=== PATIENT | female | born 1980 | race Caucasian/White ===

== ENCOUNTER 2018-03-21 10:00 | Inpatient (IN) | payer BC ==
[2018-03-21] MEDS ORDERED: Butorphanol 1 MG/ML SDV IVPUSH PRN (10:14)
[2018-03-21] MEDS ORDERED: Lidocaine 1% 50 ML MDV INJECT PRN (10:14)
[2018-03-21] MEDS ORDERED: Carboprost Tromethamine 250 MCG/1 ML Amp IM PRN (10:14)
[2018-03-21] MEDS ORDERED: Terbutaline 1 MG/ML SDV SUBCUT PRN (10:14)
[2018-03-21] MEDS ORDERED: Tranexamic Acid 1,000 MG in Sodium Chloride 0.9% 100 ML IV PRN (10:14)
[2018-03-21] MEDS ORDERED: Methylergonovine 0.2 MG/1 ML Amp IM PRN (10:14)
[2018-03-21] MEDS ORDERED: Sodium Chloride 0.9% 2.5 ML Syringe FLUSH PRN (10:14)
[2018-03-21] MEDS ORDERED: Water For Irrigation,Sterile 1,000 ML Container IRR PRN (10:14)
[2018-03-21] MEDS ORDERED: Sodium Chloride 0.9% 10 ML Syringe FLUSH PRN (10:14)
[2018-03-21] MEDS ORDERED: Misoprostol 200 MCG Tab PO PRN (10:14)
[2018-03-21] MEDS ORDERED: Nalbuphine 10 MG/1 ML Vial IVPUSH PRN (10:14)
[2018-03-21] MEDS ORDERED: Oxytocin/0.9 % Sodium Chloride 30 UNIT/500 ML BAG IV SCH ×2 (10:15)
[2018-03-21] MEDS ORDERED: Ampicillin 2 GM in Sodium Chloride 0.9% 100 ML IV ONE (10:30)
[2018-03-21] MEDS: Lactated Ringers 1,000 ML IV SCH ×2 (11:05→16:12)
[2018-03-21] MEDS ORDERED: Ampicillin 1 GM in Sodium Chloride 0.9% 50 ML IV SCH (15:00)
--- NOTE | 2018-03-21 16:20 | PCM.PREANE ---
Preanesthetic Assessment - Anesthesia/Transfusion/Family Hx Family History of Anesthesia Reaction: No - Review of Systems General: No Symptoms Pulmonary: No Symptoms Cardiovascular: No Symptoms Gastrointestinal: No Symptoms Neurological: No Symptoms Other: Reports: None (Denies any personal or family history of bleeding or clotting problems) - Physical Assessment Height: 1.63 m Weight: 81.193 kg ASA Class: 2 Mental Status: Alert & Oriented x3 Airway Class: Mallampati = 2 Dentition: Reports: Normal Dentition ROM/Head Extension: Full - Lab Values: Laboratory Last Values WBC 10.07 K/uL (4.0-11.0) 03/21/18 10:56 RBC 4.03 M/uL (4.30-5.90) L 03/21/18 10:56 Hgb 11.0 g/dL (12.0-16.0) L 03/21/18 10:56 Hct 33.9 % (36.0-46.0) L 03/21/18 10:56 MCV 84.1 fL (80.0-98.0) 03/21/18 10:56 MCH 27.3 pg (27.0-32.0) 03/21/18 10:56 MCHC 32.4 g/dL (31.0-37.0) 03/21/18 10:56 RDW Std Deviation 45.5 fl (28.0-62.0) 03/21/18 10:56 RDW Coeff of Angely 15 % (11.0-15.0) 03/21/18 10:56 Plt Count 209 K/uL (150-400) 03/21/18 10:56 MPV 11.70 fL (7.40-12.00) 03/21/18 10:56 Nucleated RBC % 0.0 /100WBC 03/21/18 10:56 Nucleated RBCs # 0 K/uL 03/21/18 10:56 Blood Type O NEGATIVE 03/21/18 10:56 Antibody Screen NEGATIVE 03/21/18 10:56 - Allergies Allergies/Adverse Reactions: Allergies Allergy/AdvReac Type Severity Reaction Status Date / Time No Known Allergies Allergy Verified 03/21/18 10:12 - Acknowledgements Anesthesia Type Planned: Epidural Pt an Appropriate Candidate for the Planned Anesthesia: Yes Alternatives and Risks of Anesthesia Discussed w Pt/Guardian: Yes Pt/Guardian Understands and Agrees with Anesthesia Plan: Yes Additional Comments: Patient consents and agrees to risks as outlined on blue anesthesia consent form PreAnesthesia Questionnaire - Past Health History Medical/Surgical History: Denies 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: - Past Surgical History HEENT Surgical History: Reports: 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) Other HEENT Surgeries/Procedures: wisdom teeth Female Surgical History: Reports: Breast Implant, D&C, LEEP Musculoskeletal Surgical History: Reports: 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) Other Musculoskeletal Surgeries/Procedures:: Right elbow surgery - HOME MEDS Home Medications: Home Meds Acetaminophen [Tylenol] 325 mg PO Q4H PRN 03/21/18 [History] Vit W-Ca,Fe,FA(<1 mg) [ Vitamins] 1 each PO DAILY 03/21/18 [ History] - CURRENT (IN HOUSE) MEDS Current Meds: Current Medications Butorphanol Tartrate (Stadol) 1 mg IVPUSH Q1H PRN PRN Reason: Pain Carboprost Tromethamine (Hemabate Ds) 250 mcg IM ASDIRECTED PRN PRN Reason: Post Hemorrhage Ampicillin Sodium 1 gm/ Sodium (Chloride) 50 mls @ 100 mls/hr IV Q4H [facility]K Last Admin: 03/21/18 15:00 Dose: 100 mls/hr Lactated Ringer's (Ringers, Lactated) 1,000 mls @ 150 mls/hr IV ASDIRECTED AMRIK Last Admin: 03/21/18 16:12 Dose: 150 mls/hr Oxytocin/Sodium Chloride (Oxytocin 30 Unit/500 Ml-Ns) 30 unit in 500 mls @ 2 mls/hr IV TITRATE [facility]RIK; Protocol Last Titration: 03/21/18 15:09 Dose: 10 munits/min, 10 mls/hr Oxytocin/Sodium Chloride (Oxytocin 30 Unit/500 Ml-Ns) 30 unit in 500 mls @ 999 mls/hr IV TITRATE [facility] Tranexamic Acid 1,000 mg/ (Sodium Chloride) 110 mls @ 660 mls/hr IV ONETIME PRN PRN Reason: Bleeding Lidocaine HCl (Xylocaine 1%) 50 ml INJECT ONETIME PRN PRN Reason: Laceration repair Methylergonovine Maleate (Methergine) 0.2 mg IM ASDIRECTED PRN PRN Reason: Post Hemorrhage Misoprostol (Cytotec) 200 mcg PO ONETIME PRN PRN Reason: Post Hemorrhage Nalbuphine HCl (Nubain) 10 mg IVPUSH Q1H PRN PRN Reason: Pain (severe 7-10) Sodium Chloride (Saline Flush) 10 ml FLUSH ASDIRECTED PRN PRN Reason: Keep Vein Open Sodium Chloride (Saline Flush) 2.5 ml FLUSH ASDIRECTED PRN PRN Reason: Keep Vein Open Sterile Water (Sterile Water For Irrigation) 1,000 ml IRR ASDIRECTED PRN PRN Reason: delivery Terbutaline Sulfate (Brethine) 0.25 mg SUBCUT ASDIRECTED PRN PRN Reason: Tacysystole Discontinued Medications Ampicillin Sodium 2 gm/ Sodium (Chloride) 100 mls @ 200 mls/hr IV ONETIME ONE Stop: 03/21/18 10:59 Last Admin: 03/21/18 11:05 Dose: 200 mls/hr Fentanyl/Bupivacaine HCl (Iedylrav-Bkuhy-Yw 2 Mcg/Ml-0.125%) Confirm Administered Dose 100 mls @ as directed BRENDA .STK-MED ONE Stop: 03/21/18 15:37
[2018-03-21] MEDS ORDERED: Bupivacaine 0.5% 10 ML SDV ONE (17:17)
[2018-03-21] MEDS ORDERED: fentaNYL 100 MCG/2 ML SDV ONE (17:17)
[2018-03-21] MEDS ORDERED: Ondansetron 4 MG/2 ML SDV IVPUSH PRN (19:00)
[2018-03-21] MEDS ORDERED: Ibuprofen 400 MG Tab PO PRN (19:00)
[2018-03-21] MEDS ORDERED: Lanolin 100% Cream 7 GM Tube TOP PRN (19:00)
[2018-03-21] MEDS ORDERED: Bisacodyl 10 MG Supp RECTAL PRN (19:00)
[2018-03-21] MEDS ORDERED: Benzocaine/Menthol 20%-0.5% Spray 78 GM Cannister TOP PRN (19:00)
[2018-03-21] MEDS ORDERED: Witch Hazel Medicated Pads 40/Jar TOP PRN (19:00)
[2018-03-21] MEDS ORDERED: Docusate Sodium 100 MG Cap PO PRN (19:00)
[2018-03-21] MEDS ORDERED: oxyCODONE 5 MG Tab PO PRN (19:00)
[2018-03-21] MEDS ORDERED: Acetaminophen 500 MG Tab PO PRN ×2 (19:00)
[2018-03-21] MEDS: Ibuprofen 800 MG Tab PO PRN (19:26)
--- NOTE | 2018-03-22 02:21 | OR ---
SURGEON: Stella Elizabeth M.D. DATE OF PROCEDURE: 03/21/2018 PREOPERATIVE DIAGNOSES: 1. 40 and 1 week intrauterine . 2. Induction of labor. 3. Group B beta strep positive. POSTOPERATIVE DIAGNOSES: 1. 40 and 1 week intrauterine . 2. Induction of labor. 3. Group B beta strep positive. PROCEDURE: Spontaneous vaginal delivery, first-degree midline laceration repaired. ANESTHESIA: Epidural. ESTIMATED BLOOD LOSS: 300 mL. FINDINGS: Viable female. scores 9 at one minute, 9 at five minutes. Weight of 3560 g. Spontaneous delivery, intact placenta, 3-vessel cord. DISPOSITION: to nursery, mom in LDRP, stable. PROCEDURE IN DETAIL: Ananya is a 37-year-old, G5, P1-1-2-2 at 40 and 1 weeks' gestational age, who presents on the late morning of 03/21/2018 for scheduled induction of labor due to past due . She was admitted, routine labs were drawn. On initial examination, she was found to be 3 cm. heart tones were in the 130s with variability. She is group B beta strep positive. Therefore, initiated on ampicillin prophylaxis. The patient responded nicely to Pitocin, became increasingly uncomfortable throughout the afternoon hours. Shortly after 3:00 p.m., was able to undergo amniotomy after receiving 2 doses of ampicillin. The patient became increasingly more uncomfortable thereafter underwent regional anesthesia in the form of epidural and progressed rapidly to complete over the next 2 hours. I was called for delivery when she was +3 station. Upon my arrival, the patient was placed in modified dorsal lithotomy position, was prepped and draped in the usual aseptic manner. Began pushing efforts and was able to push readily to a +5 station, delivered infant's head followed by anterior shoulder, posterior shoulder, and remaining body without difficulty. The 's oropharynx and nares were bulb suctioned. Cord was clamped x2 and cut. Infant was handed off to her mother with attending nursing staff at her side. Cord arterial, cord venous, cord blood sampling were obtained. Light suprapubic pressure was applied while the placenta was delivered spontaneously intact. Vigorous fundal uterine massage was then applied while 30 units of Pitocin was delivered in 500 mL IV fluid. Upon inspection of cervix, vaginal sidewalls, and perineum, these were found to be intact other than a first-degree midline laceration that was repaired using 3-0 Vicryl in the usual fashion. Hemostasis remained evident. Sponge count and needle count were correct. The patient remained in LDRP, infant to nursery. TAYLER / MARILY /[id number]
[2018-03-22] MEDS: Ibuprofen 800 MG Tab PO PRN ×2 (06:54→16:08)
--- NOTE | 2018-03-22 10:11 | PCM.PNPP ---
- General Info Date of Service: 03/22/18 Functional Status: Reports: Pain Controlled, Tolerating Diet, Ambulating, Urinating - Review of Systems General: Reports: Fatigue. Denies: Fever, Weakness Pulmonary: Denies: Shortness of Breath Cardiovascular: Denies: Chest Pain, Palpitations, Lightheadedness Gastrointestinal: Denies: Abdominal Pain, Nausea, Vomiting Genitourinary: Denies: Flank Pain Neurological: Reports: No Symptoms Psychiatric: Reports: No Symptoms - General Info Date of Service: 03/22/18 - Patient Data Vital Signs - Most Recent: Last Vital Signs Temp 36.4 C 03/22/18 08:00 Pulse 79 03/22/18 08:00 Resp 16 03/22/18 08:00 BP 135/89 03/22/18 08:00 Pulse Ox 97 03/22/18 08:00 Weight - Most Recent: 81.193 kg Lab Results - Last 24 Hours: Laboratory Results - last 24 hr 03/21/18 03/21/18 03/21/18 Range/Units 10:56 10:56 18:38 WBC 10.07 (4.0-11.0) K/uL RBC 4.03 L (4.30-5.90) M/uL Hgb 11.0 L (12.0-16.0) g/dL Hct 33.9 L (36.0-46.0) % MCV 84.1 (80.0-98.0) fL MCH 27.3 (27.0-32.0) pg MCHC 32.4 (31.0-37.0) g/dL RDW Std Deviation 45.5 (28.0-62.0) fl RDW Coeff of Angely 15 (11.0-15.0) % Plt Count 209 (150-400) K/uL MPV 11.70 (7.40-12.00) fL Nucleated RBC % 0.0 /100WBC Nucleated RBCs # 0 K/uL Cord ABG pH 7.232 (7.18-7.38) Cord ABG Base Excess -6 (-10--2) Cord VBG pH 7.306 (7.25-7.45) Cord VBG Base Excess -5 (-10--2) Blood Type O NEGATIVE Antibody Screen NEGATIVE 03/22/18 Range/Units 05:30 WBC (4.0-11.0) K/uL RBC (4.30-5.90) M/uL Hgb 10.3 L (12.0-16.0) g/dL Hct 31.7 L (36.0-46.0) % MCV (80.0-98.0) fL MCH (27.0-32.0) pg MCHC (31.0-37.0) g/dL RDW Std Deviation (28.0-62.0) fl RDW Coeff of Angely (11.0-15.0) % Plt Count (150-400) K/uL MPV (7.40-12.00) fL Nucleated RBC % /100WBC Nucleated RBCs # K/uL Cord ABG pH (7.18-7.38) Cord ABG Base Excess (-10--2) Cord VBG pH (7.25-7.45) Cord VBG Base Excess (-10--2) Blood Type Antibody Screen Med Orders - Current: Current Medications Acetaminophen (Tylenol Extra Strength) 500 mg PO Q4H PRN PRN Reason: Pain Acetaminophen (Tylenol Extra Strength) 1,000 mg PO Q4H PRN PRN Reason: Pain Last Admin: 03/22/18 01:11 Dose: 1,000 mg Benzocaine/Menthol (Dermoplast Pain Relief 20%-0.5% [place]) 78 gm TOP ASDIRECTED PRN PRN Reason: Perineal Comfort Measure Last Admin: 03/21/18 19:57 Dose: 78 gm Bisacodyl (Dulcolax) 10 mg RECTAL ONETIME PRN PRN Reason: Constipation Carboprost Tromethamine (Hemabate Ds) 250 mcg IM ASDIRECTED PRN PRN Reason: Post Hemorrhage Docusate Sodium (Colace) 100 mg PO BID PRN PRN Reason: Constipation Last Admin: 03/21/18 19:28 Dose: 100 mg Emollient Ointment (Lansinoh Hpa) 0 gm TOP ASDIRECTED PRN PRN Reason: Sore Nipples Last Admin: 03/21/18 19:30 Dose: 7 gm Lactated Ringer's (Ringers, Lactated) 1,000 mls @ 150 mls/hr IV ASDIRECTED AMRIK Last Admin: 03/21/18 16:12 Dose: 150 mls/hr Oxytocin/Sodium Chloride (Oxytocin 30 Unit/500 Ml-Ns) 30 unit in 500 mls @ 2 mls/hr IV TITRATE AMRIK; Protocol Last Titration: 03/21/18 15:09 Dose: 10 munits/min, 10 mls/hr Oxytocin/Sodium Chloride (Oxytocin 30 Unit/500 Ml-Ns) 30 unit in 500 mls @ 999 mls/hr IV TITRATE AMRIK Last Admin: 03/21/18 18:38 Dose: 500 mls/hr Tranexamic Acid 1,000 mg/ (Sodium Chloride) 110 mls @ 660 mls/hr IV ONETIME PRN PRN Reason: Bleeding Ibuprofen (Motrin) 400 mg PO Q4H PRN PRN Reason: Pain Ibuprofen (Motrin) 800 mg PO Q6H PRN PRN Reason: Pain Last Admin: 03/22/18 06:54 Dose: 800 mg Methylergonovine Maleate (Methergine) 0.2 mg IM ASDIRECTED PRN PRN Reason: Post Hemorrhage Misoprostol (Cytotec) 200 mcg PO ONETIME PRN PRN Reason: Post Hemorrhage Nalbuphine HCl (Nubain) 10 mg IVPUSH Q1H PRN PRN Reason: Pain (severe 7-10) Ondansetron HCl (Zofran) 4 mg IVPUSH Q6H PRN PRN Reason: Nausea/Vomiting Oxycodone HCl (Oxycodone) 5 mg PO Q2H PRN PRN Reason: Pain Sodium Chloride (Saline Flush) 10 ml FLUSH ASDIRECTED PRN PRN Reason: Keep Vein Open Sodium Chloride (Saline Flush) 2.5 ml FLUSH ASDIRECTED PRN PRN Reason: Keep Vein Open Sterile Water (Sterile Water For Irrigation) 1,000 ml IRR ASDIRECTED PRN PRN Reason: delivery Last Admin: 03/21/18 19:52 Dose: 1,000 ml Witch Kathleen (Tucks) 1 pad TOP ASDIRECTED PRN PRN Reason: comfort care Last Admin: 03/21/18 19:57 Dose: 1 pad Discontinued Medications Bupivacaine HCl (Sensorcaine-Mpf 0.5%) Confirm Administered Dose 10 ml .ROUTE .STK-MED ONE Stop: 03/21/18 17:18 Last Admin: 03/22/18 07:32 Dose: Not Given Butorphanol Tartrate (Stadol) 1 mg IVPUSH Q1H PRN PRN Reason: Pain Fentanyl (Sublimaze) Confirm Administered Dose 100 mcg .ROUTE .STK-MED ONE Stop: 03/21/18 17:18 Last Admin: 03/22/18 07:32 Dose: Not Given Ampicillin Sodium 2 gm/ Sodium (Chloride) 100 mls @ 200 mls/hr IV ONETIME ONE Stop: 03/21/18 10:59 Last Admin: 03/21/18 11:05 Dose: 200 mls/hr Ampicillin Sodium 1 gm/ Sodium (Chloride) 50 mls @ 100 mls/hr IV Q4H AMRIK Last Admin: 03/21/18 15:00 Dose: 100 mls/hr Fentanyl/Bupivacaine HCl (Ljvewwhc-Zsiap-Lq 2 Mcg/Ml-0.125%) Confirm Administered Dose 100 mls @ as directed EP .STK-MED ONE Stop: 03/21/18 15:37 Last Admin: 03/22/18 07:32 Dose: Not Given Lidocaine HCl (Xylocaine 1%) 50 ml INJECT ONETIME PRN PRN Reason: Laceration repair Terbutaline Sulfate (Brethine) 0.25 mg SUBCUT ASDIRECTED PRN PRN Reason: Tacysystole - Interaction Support Person: Significant Other - Recovery Exam Fundal Tone: Firm Fundal Level: At Umbilicus Fundal Placement: Midline Lochia Amount: Scant Lochia Color: Rubra/Red Perineum Description: Intact, Minimal Bruising/Swelling Other Perinuem Description: First degree tear,repaired Episiotomy/Laceration: Approximated Bladder Status: Voiding Urinary Elimination: Voided - Exam General: Alert, Oriented Lungs: Clear to Auscultation, Normal Respiratory Effort Cardiovascular: Regular Rate, Regular Rhythm GI/Abdominal Exam: Normal Bowel Sounds, Soft, Non-Tender Extremities: Pedal Edema (trace). No: Aleksandr's Sign Skin: Warm, Dry, Intact Psy/Mental Status: Alert, Normal Affect - Problem List & Annotations (1) Vaginal delivery SNOMED Code(s): 982301135 Code(s): O80 - ENCOUNTER FOR FULL-TERM UNCOMPLICATED DELIVERY Status: Acute Current Visit: Yes - Problem List Review Problem List Initiated/Reviewed/Updated: Yes - My Orders Last 24 Hours: My Active Orders 03/21/18 10:14 Patient Status [ADT] Routine Bedrest Bathroom Privileges [RC] ASDIRECTED Communication Order [RC] ASDIRECTED Communication Order [RC] ASDIRECTED Heart Tones [RC] CONTINUOUS Non Stress Test [RC] PER UNIT ROUTINE May Shower [RC] ASDIRECTED Notify Provider [RC] PRN Notify Provider [RC] PRN Oxygen Therapy [RC] ASDIRECTED Up ad [place] [RC] ASDIRECTED Vaginal Exam [RC] PRN Vaginal Exam [RC] PRN Vital Signs [RC] PER UNIT ROUTINE Vital Signs [RC] PER UNIT ROUTINE Carboprost Tromethamine [Hemabate DS] 250 mcg IM ASDIRECTED PRN Methylergonovine [Methergine] 0.2 mg IM ASDIRECTED PRN Nalbuphine [Nubain] 10 mg IVPUSH Q1H PRN Sodium Chloride 0.9% [Saline Flush] 10 ml FLUSH ASDIRECTED PRN Sodium Chloride 0.9% [Saline Flush] 2.5 ml FLUSH ASDIRECTED PRN Tranexamic Acid [Cyklokapron] 1,000 mg Sodium Chloride 0.9% [Normal Saline] 100 ml IV ONETIME Water For Irrigation,Sterile [Sterile Water for Irrigation] 1,000 ml IRR ASDIRECTED PRN miSOPROStol [Cytotec] 200 mcg PO ONETIME PRN Peripheral IV Insertion Adult [OM.PC] Routine Resuscitation Status Routine 03/21/18 10:15 Lactated Ringers [Ringers, Lactated] 1,000 ml IV ASDIRECTED Oxytocin/0.9 % Sodium Chloride [Oxytocin 30 Unit/500 ML-NS] 30 unit in 500 ml IV TITRATE Oxytocin/0.9 % Sodium Chloride [Oxytocin 30 Unit/500 ML-NS] 30 unit in 500 ml IV TITRATE Medication Administration Instruction [OM.PC] Q3H 03/21/18 18:59 Ready for Discharge [RC] PER UNIT ROUTINE 03/21/18 19:00 Patient Status [ADT] Routine May Shower [RC] ASDIRECTED Up ad [place] [RC] ASDIRECTED Vital Signs [RC] PER UNIT ROUTINE Acetaminophen [Tylenol Extra Strength] 1,000 mg PO Q4H PRN Acetaminophen [Tylenol Extra Strength] 500 mg PO Q4H PRN Benzocaine/Menthol [Dermoplast Pain Relief 20%-0.5% [place]] 78 gm TOP ASDIRECTED PRN Bisacodyl [Dulcolax] 10 mg RECTAL ONETIME PRN Docusate Sodium [Colace] 100 mg PO BID PRN Ibuprofen [Motrin] 400 mg PO Q4H PRN Ibuprofen [Motrin] 800 mg PO Q6H PRN Lanolin [Lansinoh HPA] See Dose Instructions TOP ASDIRECTED PRN Ondansetron [Zofran] 4 mg IVPUSH Q6H PRN Witch Kathleen [Tucks] 1 pad TOP ASDIRECTED PRN oxyCODONE 5 mg PO Q2H PRN Assess Lochia [WOMSER] Per Unit Routine Assess Uterine Involution [WOMSER] Per Unit Routine Ice Therapy [OM.PC] Per Unit Routine Perineal Care [OM.PC] Per Unit Routine Peripheral IV Discontinue [OM.PC] Routine Sitz Bath [OM.PC] Per Unit Routine 03/21/18 Dinner Regular Diet [DIET] 03/22/18 10:08 Ready for Discharge [RC] PER UNIT ROUTINE - Assessment Assessment:: PPD 1 status /1st MLL repaired - Plan Plan:: Continue PP cares, ambulate halls. Patient would like to go home tonight. Discharge instructions reviewed. Follow up at [facility] 6 weeks. Infection and bleeding warnings reviewed. Discharge to home later today.
[2018-03-22 16:12] VITALS: BP 123/74
== END 2018-03-22 20:35 | disposition home or self-care (01) | DRG 560 ==
LOC: MW.OBCHECK 10:00 → UNDOADMOB 10:14 → MW.OB 10:14 → INTOOBSV 18:38 → OBSVTOIN 18:38 → MW.OB 22:00 → OBSVTOIN 22:00 → MW.OB 03-22 00:02
PROVIDERS: ADMIT Obstetrics & Gynecology; ATTEND Obstetrics & Gynecology
PROC: 6A550ZT Pheresis of Cord Blood Stem Cells, Single (ICD-10-PCS; principal; 2018-03-21)
PROC: 0HQ9XZZ Repair Perineum Skin, External Approach (ICD-10-PCS; principal; 2018-03-21)
PROC: 10907ZC Drainage of Amniotic Fluid, Therapeutic from Products of Conception, Via Natural or Artificial Opening (ICD-10-PCS; principal; 2018-03-21)
PROC: 10E0XZZ Delivery of Products of Conception, External Approach (ICD-10-PCS; principal; 2018-03-21)
PROC: 3E033VJ Introduction of Other Hormone into Peripheral Vein, Percutaneous Approach (ICD-10-PCS; principal; 2018-03-21)
PROC: 00HU33Z Insertion of Infusion Device into Spinal Canal, Percutaneous Approach (ICD-10-PCS; 2018-03-21)
PROC: 3E0R3BZ Introduction of Anesthetic Agent into Spinal Canal, Percutaneous Approach (ICD-10-PCS; 2018-03-21)
PROC: 3E0234Z Introduction of Serum, Toxoid and Vaccine into Muscle, Percutaneous Approach (ICD-10-PCS; 2018-03-22)
DX: O48.0 Post-term pregnancy (principal); O98.32 Other infections with a predominantly sexual mode of transmission complicating childbirth; A63.0 Anogenital (venereal) warts; O70.0 First degree perineal laceration during delivery; Z3A.40 40 weeks gestation of pregnancy; Z37.0 Single live birth; O99.824 Streptococcus B carrier state complicating childbirth; Z23 Encounter for immunization
CPT/HCPCS: 36415; 59025; 59409; 82803; 85014; 85018; 85027; 86850; 86900; 86901; 90686; A9270-GY; J0290; J2590; J3010; J3490; J7030; J7050; J7120

== ENCOUNTER 2019-06-28 11:04 | Inpatient (IN) | payer BC ==
[2019-06-28] MEDS ORDERED: Butorphanol 1 MG/ML SDV IVPUSH PRN (11:09)
[2019-06-28] MEDS ORDERED: Misoprostol 200 MCG Tab PO PRN (11:09)
[2019-06-28] MEDS ORDERED: Sodium Chloride 0.9% 10 ML Syringe FLUSH PRN (11:09)
[2019-06-28] MEDS ORDERED: Sodium Chloride 0.9% 2.5 ML Syringe FLUSH PRN (11:09)
[2019-06-28] MEDS ORDERED: Lidocaine 1% 50 ML MDV INJECT PRN (11:09)
[2019-06-28] MEDS ORDERED: Terbutaline 1 MG/ML SDV SUBCUT PRN (11:09)
[2019-06-28] MEDS ORDERED: Sodium Chloride 0.9% 10 ML SDV IV PRN (11:09)
[2019-06-28] MEDS ORDERED: Ondansetron 4 MG/2 ML SDV IVPUSH PRN (11:09)
[2019-06-28] MEDS ORDERED: Tranexamic Acid 1,000 MG in Sodium Chloride 0.9% 100 ML IV PRN (11:09)
[2019-06-28] MEDS ORDERED: Carboprost Tromethamine 250 MCG/1 ML Amp IM PRN (11:09)
[2019-06-28] MEDS ORDERED: Methylergonovine 0.2 MG/1 ML Amp IM PRN (11:09)
[2019-06-28] MEDS ORDERED: Water For Irrigation,Sterile 1,000 ML Container IRR PRN (11:09)
[2019-06-28] MEDS ORDERED: Nalbuphine 10 MG/1 ML Vial IVPUSH PRN (11:09)
[2019-06-28] MEDS ORDERED: Oxytocin/0.9 % Sodium Chloride 30 UNIT/500 ML BAG IV SCH ×2 (11:15)
[2019-06-28] MEDS: Lactated Ringers 1,000 ML IV SCH ×2 (12:00→20:46)
[2019-06-28] MEDS ORDERED: Ampicillin 2 GM in Sodium Chloride 0.9% 100 ML IV ONE (12:00)
[2019-06-28] MEDS: Ampicillin 1 GM in Sodium Chloride 0.9% 50 ML IV SCH ×2 (16:33→20:42)
[2019-06-28] MEDS ORDERED: Ropivacaine HCl/PF 100 ML ONE (16:37)
[2019-06-28] MEDS ORDERED: fentaNYL 100 MCG/2 ML SDV ONE ×2 (16:37→19:22)
--- NOTE | 2019-06-28 17:01 | PCM.PREANE ---
Preanesthetic Assessment - Anesthesia/Transfusion/Family Hx Anesthesia History: Prior Anesthesia Without Reaction Family History of Anesthesia Reaction: No Transfusion History: No Prior Transfusion(s) - Review of Systems General: No Symptoms Pulmonary: No Symptoms Cardiovascular: No Symptoms Gastrointestinal: No Symptoms Neurological: No Symptoms Other: Reports: None - Physical Assessment NPO Status Date: 06/28/19 NPO Status Time: 12:00 Height: 1.65 m Weight: 79.832 kg ASA Class: 1 - Lab Values: Laboratory Last Values WBC 8.14 K/uL (4.0-11.0) 06/28/19 11:50 RBC 4.21 M/uL (4.30-5.90) L 06/28/19 11:50 Hgb 10.3 g/dL (12.0-16.0) L 06/28/19 11:50 Hct 33.3 % (36.0-46.0) L 06/28/19 11:50 MCV 79.1 fL (80.0-98.0) L 06/28/19 11:50 MCH 24.5 pg (27.0-32.0) L 06/28/19 11:50 MCHC 30.9 g/dL (31.0-37.0) L 06/28/19 11:50 RDW Std Deviation 46.8 fl (28.0-62.0) 06/28/19 11:50 RDW Coeff of Angely 16 % (11.0-15.0) H 06/28/19 11:50 Plt Count 229 K/uL (150-400) 06/28/19 11:50 MPV 11.60 fL (7.40-12.00) 06/28/19 11:50 Nucleated RBC % 0.0 /100WBC 06/28/19 11:50 Nucleated RBCs # 0 K/uL 06/28/19 11:50 Blood Type O NEGATIVE 06/28/19 11:50 Antibody Screen NEGATIVE 06/28/19 11:50 - Allergies Allergies/Adverse Reactions: Allergies Allergy/AdvReac Type Severity Reaction Status Date / Time No Known Allergies Allergy Verified 03/21/18 10:12 - Acknowledgements Anesthesia Type Planned: Epidural Pt an Appropriate Candidate for the Planned Anesthesia: Yes Alternatives and Risks of Anesthesia Discussed w Pt/Guardian: Yes Pt/Guardian Understands and Agrees with Anesthesia Plan: Yes PreAnesthesia Questionnaire - Past Health History Medical/Surgical History: Denies Medical/Surgical History HEENT History: Reports: None Cardiovascular History: Reports: None Respiratory History: Reports: None Gastrointestinal History: Reports: 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) Other Gastrointestinal History: UC Genitourinary History: Reports: None 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: , 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) Other OB/BYN History: D&C Musculoskeletal History: Reports: None Neurological History: Reports: None Psychiatric History: Reports: None Endocrine/Metabolic History: Reports: None Hematologic History: Reports: None Immunologic History: Reports: None Oncologic (Cancer) History: Reports: None Dermatologic History: Reports: None - Infectious Disease History Infectious Disease History: Reports: Chicken Pox - Past Surgical History Head Surgeries/Procedures: Reports: None HEENT Surgical History: Reports: None, 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) Other HEENT Surgeries/Procedures: wisdom teeth Cardiovascular Surgical History: Reports: None Respiratory Surgical History: Reports: None GI Surgical History: Reports: None Female Surgical History: Reports: Breast Implant, D&C, LEEP Neurological Surgical History: Reports: None Musculoskeletal Surgical History: Reports: 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) Other Musculoskeletal Surgeries/Procedures:: Right elbow surgery Oncologic Surgical History: Reports: None - SUBSTANCE USE Smoking Status *Q: Never Smoker Second Hand Smoke Exposure: No Recreational Drug Use History: No - HOME MEDS Home Medications: Home Meds Acetaminophen [Tylenol] 325 mg PO Q4H PRN 03/21/18 [History] Vit Calc,Iron,Folic [ Vitamins] 1 each PO DAILY 03/21/18 [ History] - CURRENT (IN HOUSE) MEDS Current Meds: Current Medications Butorphanol Tartrate (Stadol) 1 mg IVPUSH Q1H PRN PRN Reason: Pain Carboprost Tromethamine (Hemabate Ds) 250 mcg IM ASDIRECTED PRN PRN Reason: Post Hemorrhage Ampicillin Sodium 1 gm/ Sodium (Chloride) 50 mls @ 100 mls/hr IV Q4H [facility] Last Admin: 06/28/19 16:33 Dose: 100 mls/hr Lactated Ringer's (Ringers, Lactated) 1,000 mls @ 150 mls/hr IV ASDIRECTED [facility] Last Admin: 06/28/19 12:00 Dose: 125 mls/hr Oxytocin/Sodium Chloride (Oxytocin 30 Unit/500 Ml-Ns) 30 unit in 500 mls @ 999 mls/hr IV TITRATE AMRIK Last Infusion: 06/28/19 14:36 Dose: 8 mls/hr Oxytocin/Sodium Chloride (Oxytocin 30 Unit/500 Ml-Ns) 30 unit in 500 mls @ 2 mls/hr IV TITRATE AMRIK; Protocol Tranexamic Acid 1,000 mg/ (Sodium Chloride) 110 mls @ 660 mls/hr IV ONETIME PRN PRN Reason: Bleeding Lidocaine HCl (Xylocaine 1%) 50 ml INJECT ONETIME PRN PRN Reason: Laceration repair Methylergonovine Maleate (Methergine) 0.2 mg IM ASDIRECTED PRN PRN Reason: Post Hemorrhage Misoprostol (Cytotec) 200 mcg PO ONETIME PRN PRN Reason: Post Hemorrhage Nalbuphine HCl (Nubain) 10 mg IVPUSH Q1H PRN PRN Reason: Pain (severe 7-10) Ondansetron HCl (Zofran) 4 mg IVPUSH Q6H PRN PRN Reason: Nausea/Vomiting Sodium Chloride (Saline Flush) 10 ml FLUSH ASDIRECTED PRN PRN Reason: Keep Vein Open Sodium Chloride (Saline Flush) 2.5 ml FLUSH ASDIRECTED PRN PRN Reason: Keep Vein Open Sodium Chloride (Normal Saline) 10 ml IV ASDIRECTED PRN PRN Reason: IV Use Sterile Water (Sterile Water For Irrigation) 1,000 ml IRR ASDIRECTED PRN PRN Reason: delivery Terbutaline Sulfate (Brethine) 0.25 mg SUBCUT ASDIRECTED PRN PRN Reason: Tacysystole Discontinued Medications Fentanyl (Sublimaze) Confirm Administered Dose 100 mcg .ROUTE .STK-MED ONE Stop: 06/28/19 16:38 Ampicillin Sodium 2 gm/ Sodium (Chloride) 100 mls @ 200 mls/hr IV ONETIME ONE Stop: 06/28/19 12:29 Last Admin: 06/28/19 12:40 Dose: 200 mls/hr Ropivacaine (Naropin 0.2%) Confirm Administered Dose 100 mls @ as directed .ROUTE .STK-MED ONE Stop: 06/28/19 16:38
--- NOTE | 2019-06-28 17:05 | PCM.PRNOTE ---
- Free Text/Narrative Note: Anes Note Patient requests epidural for L&D> Sitting position. Sterile technique. Chloraprep scrub to lumbar area. Sterile fenestrated drape applied. Epidural space easily achieved single attempt with ease using HILDA technique. HILDA at 4 cm. Epidural catheter easily threaded 5 cm with ease. Cath secured at skin at 9 cm kaye using sterile clear adhesive dressing. Amanda well. 1650 Test 3 cc 1.5% lido with epi negative. 1653 Load 10 cc 0.2 5 ropivicaine with 1 mcg cc fentanyl in slow divided doses 1656 Pump started wtih 90 cc same solution at 8 cc hr with 6 cc q 20 min prn bolus. Amanda well. Time with patient [id number] Justice Suresh TEACHER ASST
--- NOTE | 2019-06-28 19:27 | PCM.PRNOTE ---
- Free Text/Narrative Note: Anes Note Patient reports mild sensory changed to T10 level. She reports mild tingling and heaviness of legs, however, requests some additional analgesia. Epidural was dosed with 100 mcg fentanyl and 4 cc 2% lido with epi in slow divided doses. Time with patient [id number] Justice Suresh CRNA
[2019-06-28] MEDS ORDERED: Acetaminophen 500 MG Tab PO PRN (23:23)
[2019-06-28] MEDS ORDERED: Docusate Sodium 100 MG Cap PO PRN (23:23)
[2019-06-28] MEDS ORDERED: Aluminum Hydroxide/Magnesium Hydroxide/Simethicone Susp 30 ML Cup PO PRN (23:23)
[2019-06-28] MEDS ORDERED: Ibuprofen 400 MG Tab PO PRN (23:23)
[2019-06-28] MEDS ORDERED: Witch Hazel Medicated Pads 40/Jar TOP PRN (23:23)
[2019-06-28] MEDS ORDERED: Bisacodyl 10 MG Supp RECTAL PRN (23:23)
[2019-06-28] MEDS ORDERED: Lanolin 100% Cream 7 GM Tube TOP PRN (23:23)
--- NOTE | 2019-06-28 23:30 | PCM.OPNOTE ---
- General Post-Op/Procedure Note Date of Surgery/Procedure: 06/28/19 Operative Procedure(s): /1st MLL repaired Findings: Viable female AGPARs 8, 9 weight 3570 gm. Spontaneous delivery intact placenta with 3V cord Pre Op Diagnosis: 39/3 week IUP. Elective IOL Post-Op Diagnosis: Same Anesthesia Technique: Epidural Primary Surgeon: Stella Elizabeth EBL in mLs: 250 Complications: none known Condition: Stable Free Text/Narrative:: Dictation [id number]
[2019-06-29] MEDS: Ibuprofen 800 MG Tab PO PRN ×3 (00:22→17:34)
[2019-06-29] MEDS: Benzocaine/Menthol 20%-0.5% Spray 78 GM Cannister TOP PRN ×2 (00:27→19:51)
--- NOTE | 2019-06-29 00:36 | OR ---
SURGEON: Stella Elizabeth M.D. DATE OF PROCEDURE: 06/28/2019 PREOPERATIVE DIAGNOSES: 1. 39-3/7 weeks' intrauterine . 2. Elective induction of labor. POSTOPERATIVE DIAGNOSIS: 1. 39-3/7 weeks' intrauterine . 2. Elective induction of labor. PROCEDURE: Spontaneous vaginal delivery, first-degree midline laceration repaired. PRIMARY SURGEON: Stella Elizabeth M.D. ANESTHESIA: Epidural. ESTIMATED BLOOD LOSS: 250 mL. COMPLICATIONS: None. FINDINGS: Viable female. score of 8 at one minute and 9 at five minutes. Weight of 3570 g. Spontaneous delivery, intact placenta, 3-vessel cord. DISPOSITION: Infant to nursery, mom in LDRP. PROCEDURE DETAILS: Ananya is a 38-year-old G4, P3, at 39-3/7 weeks' gestational age, who presents for scheduled elective induction of labor on the late morning of 06/28/2019. Upon admission, vital signs were stable. Category 1 heart tones. She was initiated on Pitocin induction and group B beta strep prophylaxis. She became increasingly uncomfortable through the afternoon hours, underwent regional anesthesia in the form of epidural, became more comfortable. Shortly after 5 p.m. after receiving 2nd dose of group B strep prophylaxis, underwent amniotomy. Clear fluid was returned. The patient continued to progress through the evening hours and shortly before 10 p.m., was found to be complete, 100% effaced, +1 station. I was called for delivery. Upon my arrival, the patient was placed in modified dorsal lithotomy position, was prepped and draped in the usual aseptic manner. With pushing efforts, was able to push to a +4 station, delivered the infant's head atraumatically spontaneously, followed by anterior shoulder, posterior shoulder, and remainder of the body without difficulty. The infant's oropharynx and nares were bulb suctioned. was handed off to her mother with attending nursing staff at her side. After a delay, the cord was clamped x2 and cut. Cord arterial, cord venous, cord blood sampling were obtained. Light pressure was applied while the placenta was delivered spontaneously intact. Vigorous fundal uterine massage was then applied while 30 units of Pitocin was delivered in 500 mL of IV fluid. Upon inspection of cervix, vaginal sidewalls, and perineum, there was found to be a first-degree midline laceration. First-degree midline laceration repaired using 3-0 Vicryl in the usual fashion. Uterus remained firm. Hemostasis remained evident. Sponge count, instrument count, and needle count were correct. The patient remained in LDRP. Infant in nursery. TAYLER / MARILY /[id number]
[2019-06-29] MEDS: oxyCODONE 5 MG Tab PO PRN ×3 (03:54→23:02)
--- NOTE | 2019-06-29 08:28 | PCM48HPAN ---
Post Anesthesia Note - EVALUATION WITHIN 48HRS OF ANESTHETIC Vital Signs in Normal Range: Yes Patient Participated in Evaluation: Yes Respiratory Function Stable: Yes Airway Patent: Yes Cardiovascular Function Stable: Yes Hydration Status Stable: Yes Pain Control Satisfactory: Yes Nausea and Vomiting Control Satisfactory: Yes Mental Status Recovered: Yes Vital Signs: Last Vital Signs Temp 36.4 C 06/29/19 07:20 Pulse 69 06/29/19 07:20 Resp 16 06/29/19 07:20 BP 102/59 L 06/29/19 07:20 Pulse Ox 99 06/29/19 07:20 - COMMENTS/OBSERVATIONS Free Text/Narrative:: Doing well. No problems noted post.
--- NOTE | 2019-06-29 09:49 | PCM.PNPP ---
- General Info Date of Service: 06/29/19 - Review of Systems General: Reports: No Symptoms HEENT: Reports: No Symptoms Pulmonary: Reports: No Symptoms Cardiovascular: Denies: Chest Pain, Palpitations, Lightheadedness Gastrointestinal: Denies: Abdominal Pain, Nausea, Vomiting Genitourinary: Denies: Flank Pain Musculoskeletal: Reports: No Symptoms Skin: Reports: No Symptoms Neurological: Reports: No Symptoms Psychiatric: Reports: No Symptoms - General Info Date of Service: 06/29/19 - Patient Data Vital Signs - Most Recent: Last Vital Signs Temp 36.4 C 06/29/19 07:20 Pulse 69 06/29/19 07:20 Resp 16 06/29/19 07:20 BP 102/59 L 06/29/19 07:20 Pulse Ox 99 06/29/19 07:20 Weight - Most Recent: 79.832 kg Lab Results - Last 24 Hours: Laboratory Results - last 24 hr 06/28/19 06/28/19 06/28/19 Range/Units 11:50 11:50 22:55 WBC 8.14 (4.0-11.0) K/uL RBC 4.21 L (4.30-5.90) M/uL Hgb 10.3 L (12.0-16.0) g/dL Hct 33.3 L (36.0-46.0) % MCV 79.1 L (80.0-98.0) fL MCH 24.5 L (27.0-32.0) pg MCHC 30.9 L (31.0-37.0) g/dL RDW Std Deviation 46.8 (28.0-62.0) fl RDW Coeff of Angely 16 H (11.0-15.0) % Plt Count 229 (150-400) K/uL MPV 11.60 (7.40-12.00) fL Nucleated RBC % 0.0 /100WBC Nucleated RBCs # 0 K/uL Cord ABG pH 7.240 (7.18-7.38) Cord ABG Base Excess -6 (-10--2) Cord VBG pH 7.315 (7.25-7.45) Cord VBG Base Excess -6 (-10--2) Blood Type O NEGATIVE Antibody Screen NEGATIVE Screen (NEGATIVE) RhIG Candidate? Rhogam Indicated 06/29/19 06/29/19 Range/Units 01:03 06:02 WBC (4.0-11.0) K/uL RBC (4.30-5.90) M/uL Hgb 9.8 L (12.0-16.0) g/dL Hct 31.6 L (36.0-46.0) % MCV (80.0-98.0) fL MCH (27.0-32.0) pg MCHC (31.0-37.0) g/dL RDW Std Deviation (28.0-62.0) fl RDW Coeff of Angely (11.0-15.0) % Plt Count (150-400) K/uL MPV (7.40-12.00) fL Nucleated RBC % /100WBC Nucleated RBCs # K/uL Cord ABG pH (7.18-7.38) Cord ABG Base Excess (-10--2) Cord VBG pH (7.25-7.45) Cord VBG Base Excess (-10--2) Blood Type Antibody Screen Screen NEGATIVE (NEGATIVE) RhIG Candidate? YES Rhogam Indicated YES, BABY RH POS H Med Orders - Current: Current Medications Acetaminophen (Tylenol Extra Strength) 500 mg PO Q4H PRN PRN Reason: Pain Last Admin: 06/29/19 03:53 Dose: 500 mg Acetaminophen (Tylenol Extra Strength) 1,000 mg PO Q4H PRN PRN Reason: Pain Al Hydroxide/Mg Hydroxide (Mag-Al Plus) 30 ml PO Q8H PRN PRN Reason: Heartburn Benzocaine/Menthol (Dermoplast Pain Relief 20%-0.5% [place]) 0 gm TOP ASDIRECTED PRN PRN Reason: Perineal Comfort Measure Last Admin: 06/29/19 00:27 Dose: 1 canister Bisacodyl (Dulcolax) 10 mg RECTAL ONETIME PRN PRN Reason: Constipation Carboprost Tromethamine (Hemabate Ds) 250 mcg IM ASDIRECTED PRN PRN Reason: Post Hemorrhage Docusate Sodium (Colace) 100 mg PO BID PRN PRN Reason: Constipation Emollient Ointment (Lansinoh Hpa) 0 gm TOP ASDIRECTED PRN PRN Reason: Sore Nipples Lactated Ringer's (Ringers, Lactated) 1,000 mls @ 150 mls/hr IV ASDIRECTED AMRIK Last Admin: 06/28/19 20:46 Dose: 150 mls/hr Oxytocin/Sodium Chloride (Oxytocin 30 Unit/500 Ml-Ns) 30 unit in 500 mls @ 999 mls/hr IV TITRATE AMRIK Last Infusion: 06/28/19 22:57 Dose: 500 mls/hr Oxytocin/Sodium Chloride (Oxytocin 30 Unit/500 Ml-Ns) 30 unit in 500 mls @ 2 mls/hr IV TITRATE [facility]; Protocol Tranexamic Acid 1,000 mg/ (Sodium Chloride) 110 mls @ 660 mls/hr IV ONETIME PRN PRN Reason: Bleeding Ibuprofen (Motrin) 400 mg PO Q4H PRN PRN Reason: Pain Ibuprofen (Motrin) 800 mg PO Q6H PRN PRN Reason: Pain Last Admin: 06/29/19 06:24 Dose: 800 mg Methylergonovine Maleate (Methergine) 0.2 mg IM ASDIRECTED PRN PRN Reason: Post Hemorrhage Nalbuphine HCl (Nubain) 10 mg IVPUSH Q1H PRN PRN Reason: Pain (severe 7-10) Ondansetron HCl (Zofran) 4 mg IVPUSH Q6H PRN PRN Reason: Nausea/Vomiting Oxycodone HCl (Oxycodone) 5 mg PO Q2H PRN PRN Reason: Pain Last Admin: 06/29/19 03:54 Dose: 5 mg Sodium Chloride (Saline Flush) 10 ml FLUSH ASDIRECTED PRN PRN Reason: Keep Vein Open Sodium Chloride (Saline Flush) 2.5 ml FLUSH ASDIRECTED PRN PRN Reason: Keep Vein Open Sodium Chloride (Normal Saline) 10 ml IV ASDIRECTED PRN PRN Reason: IV Use Sterile Water (Sterile Water For Irrigation) 1,000 ml IRR ASDIRECTED PRN PRN Reason: delivery Witch Kathleen (Tucks) 1 pad TOP ASDIRECTED PRN PRN Reason: comfort care Last Admin: 06/29/19 00:28 Dose: 1 container Discontinued Medications Butorphanol Tartrate (Stadol) 1 mg IVPUSH Q1H PRN PRN Reason: Pain Fentanyl (Sublimaze) Confirm Administered Dose 100 mcg .ROUTE .STK-MED ONE Stop: 06/28/19 16:38 Last Admin: 06/29/19 07:22 Dose: Not Given Fentanyl (Sublimaze) Confirm Administered Dose 100 mcg .ROUTE .STK-MED ONE Stop: 06/28/19 19:23 Last Admin: 06/29/19 07:22 Dose: Not Given Ampicillin Sodium 2 gm/ Sodium (Chloride) 100 mls @ 200 mls/hr IV ONETIME ONE Stop: 06/28/19 12:29 Last Admin: 06/28/19 12:40 Dose: 200 mls/hr Ampicillin Sodium 1 gm/ Sodium (Chloride) 50 mls @ 100 mls/hr IV Q4H AMRIK Last Admin: 06/28/19 20:42 Dose: 100 mls/hr Ropivacaine (Naropin 0.2%) Confirm Administered Dose 100 mls @ as directed .ROUTE .STK-MED ONE Stop: 06/28/19 16:38 Last Admin: 06/29/19 07:22 Dose: Not Given Lidocaine HCl (Xylocaine 1%) 50 ml INJECT ONETIME PRN PRN Reason: Laceration repair Misoprostol (Cytotec) 200 mcg PO ONETIME PRN PRN Reason: Post Hemorrhage Terbutaline Sulfate (Brethine) 0.25 mg SUBCUT ASDIRECTED PRN PRN Reason: Tacysystole - Interaction Support Person: - Exam General: Alert, Oriented Lungs: Normal Respiratory Effort Cardiovascular: Regular Rate, Regular Rhythm GI/Abdominal Exam: Normal Bowel Sounds, Soft Extremities: Pedal Edema (trace). No: Aleksandr's Sign Skin: Warm, Dry, Intact Neurological: No New Focal Deficit Psy/Mental Status: Alert, Normal Affect, Normal Mood - Problem List & Annotations (1) Vaginal delivery SNOMED Code(s): 758449351 Code(s): O80 - ENCOUNTER FOR FULL-TERM UNCOMPLICATED DELIVERY Status: Acute Current Visit: No - Problem List Review Problem List Initiated/Reviewed/Updated: Yes - My Orders Last 24 Hours: My Active Orders 06/28/19 11:09 Patient Status [ADT] Routine May Shower [RC] ASDIRECTED Notify Provider [RC] PRN Oxygen Therapy [RC] ASDIRECTED Up ad [place] [RC] ASDIRECTED Vital Signs [RC] PER UNIT ROUTINE Carboprost Tromethamine [Hemabate DS] 250 mcg IM ASDIRECTED PRN Methylergonovine [Methergine] 0.2 mg IM ASDIRECTED PRN Nalbuphine [Nubain] 10 mg IVPUSH Q1H PRN Ondansetron [Zofran] 4 mg IVPUSH Q6H PRN Sodium Chloride 0.9% [Normal Saline] 10 ml IV ASDIRECTED PRN Sodium Chloride 0.9% [Saline Flush] 10 ml FLUSH ASDIRECTED PRN Sodium Chloride 0.9% [Saline Flush] 2.5 ml FLUSH ASDIRECTED PRN Tranexamic Acid [Cyklokapron] 1,000 mg Sodium Chloride 0.9% [Normal Saline] 100 ml IV ONETIME Water For Irrigation,Sterile [Sterile Water for Irrigation] 1,000 ml IRR ASDIRECTED PRN Peripheral IV Insertion Adult [OM.PC] Routine Resuscitation Status Routine 06/28/19 11:15 Lactated Ringers [Ringers, Lactated] 1,000 ml IV ASDIRECTED Oxytocin/0.9 % Sodium Chloride [Oxytocin 30 Unit/500 ML-NS] 30 unit in 500 ml IV TITRATE Oxytocin/0.9 % Sodium Chloride [Oxytocin 30 Unit/500 ML-NS] 30 unit in 500 ml IV TITRATE Medication Administration Instruction [OM.PC] Q3H 06/28/19 11:50 RAPID PLASMA REAGIN, QUANT [REF] Routine 06/28/19 23:23 Patient Status [ADT] Routine May Shower [RC] ASDIRECTED Up ad [place] [RC] ASDIRECTED Vital Signs [RC] PER UNIT ROUTINE Acetaminophen [Tylenol Extra Strength] 1,000 mg PO Q4H PRN Acetaminophen [Tylenol Extra Strength] 500 mg PO Q4H PRN Alum Hydrox/Mag Hydrox/Simeth [Mag-Al Plus] 30 ml PO Q8H PRN Benzocaine/Menthol [Dermoplast Pain Relief 20%-0.5% [place]] 0 gm TOP ASDIRECTED PRN Docusate Sodium [Colace] 100 mg PO BID PRN Ibuprofen [Motrin] 400 mg PO Q4H PRN Ibuprofen [Motrin] 800 mg PO Q6H PRN Lanolin [Lansinoh HPA] See Dose Instructions TOP ASDIRECTED PRN Witch Kathleen [Tucks] 1 pad TOP ASDIRECTED PRN bisacodyL [Dulcolax] 10 mg RECTAL ONETIME PRN oxyCODONE 5 mg PO Q2H PRN Assess Lochia [WOMSER] Per Unit Routine Assess Uterine Involution [WOMSER] Per Unit Routine Peripheral IV Discontinue [OM.PC] Routine Sitz Bath [OM.PC] Per Unit Routine 06/28/19 23:24 Ice Therapy [OM.PC] Per Unit Routine Perineal Care [OM.PC] Per Unit Routine 06/29/19 01:03 SCREEN [BBK] Routine RH IMMUNE GLOBULIN [BBK] Routine RHOGAM, [RHIG WORKUP, ] [BBK] Routine - Assessment Assessment:: PPD 1 status post /1st MLL repaired - Plan Plan:: Continue cares. If remains stable, anticipate discharge tomorrow morning.
[2019-06-29] MEDS: Acetaminophen 500 MG Tab PO PRN ×2 (11:16→22:55)
[2019-06-29] MEDS ORDERED: Lidocaine 2% with EPINEPHrine 1:100,000 20 ML MDV ONE (15:01)
[2019-06-30] MEDS: Ibuprofen 800 MG Tab PO PRN (04:20)
[2019-06-30 04:53] VITALS: PULSE 72
[2019-06-30] MEDS: Acetaminophen 500 MG Tab PO PRN (06:54)
--- NOTE | 2019-06-30 11:25 | PCM.PNPP ---
- General Info Date of Service: 06/30/19 Functional Status: Reports: Pain Controlled, Tolerating Diet, Ambulating, Urinating - Review of Systems General: Reports: No Symptoms HEENT: Reports: No Symptoms Pulmonary: Reports: No Symptoms Cardiovascular: Reports: No Symptoms Gastrointestinal: Reports: No Symptoms Genitourinary: Reports: No Symptoms Musculoskeletal: Reports: No Symptoms Skin: Reports: No Symptoms Neurological: Reports: No Symptoms Psychiatric: Reports: No Symptoms - Patient Data Vital Signs - Most Recent: Last Vital Signs Temp 36.6 C 06/30/19 04:52 Pulse 72 06/30/19 04:52 Resp 16 06/30/19 04:52 BP 115/70 06/30/19 04:52 Pulse Ox 96 06/30/19 04:52 Weight - Most Recent: 176 lb I&O - Last 24 Hours: Intake & Output 06/29/19 06/30/19 06/30/19 22:59 06:59 14:59 Intake Total 2 Balance 2 Lab Results - Last 24 Hours: Laboratory Results - last 24 hr 06/28/19 06/29/19 Range/Units 11:50 01:03 RPR 1:1 H (NonRea<1:1) Screen NEGATIVE (NEGATIVE) RhIG Candidate? YES Rhogam Indicated YES, BABY RH POS H Med Orders - Current: Current Medications Acetaminophen (Tylenol Extra Strength) 500 mg PO Q4H PRN PRN Reason: Pain Last Admin: 06/29/19 03:53 Dose: 500 mg Acetaminophen (Tylenol Extra Strength) 1,000 mg PO Q4H PRN PRN Reason: Pain Last Admin: 06/30/19 06:54 Dose: 1,000 mg Al Hydroxide/Mg Hydroxide (Mag-Al Plus) 30 ml PO Q8H PRN PRN Reason: Heartburn Benzocaine/Menthol (Dermoplast Pain Relief 20%-0.5% [place]) 0 gm TOP ASDIRECTED PRN PRN Reason: Perineal Comfort Measure Last Admin: 06/29/19 19:51 Dose: 1 canister Bisacodyl (Dulcolax) 10 mg RECTAL ONETIME PRN PRN Reason: Constipation Carboprost Tromethamine (Hemabate Ds) 250 mcg IM ASDIRECTED PRN PRN Reason: Post Hemorrhage Docusate Sodium (Colace) 100 mg PO BID PRN PRN Reason: Constipation Last Admin: 06/29/19 19:53 Dose: 100 mg Emollient Ointment (Lansinoh Hpa) 0 gm TOP ASDIRECTED PRN PRN Reason: Sore Nipples Lactated Ringer's (Ringers, Lactated) 1,000 mls @ 150 mls/hr IV ASDIRECTED AMRIK Last Admin: 06/28/19 20:46 Dose: 150 mls/hr Oxytocin/Sodium Chloride (Oxytocin 30 Unit/500 Ml-Ns) 30 unit in 500 mls @ 999 mls/hr IV TITRATE AMRIK Last Infusion: 06/28/19 22:57 Dose: 500 mls/hr Oxytocin/Sodium Chloride (Oxytocin 30 Unit/500 Ml-Ns) 30 unit in 500 mls @ 2 mls/hr IV TITRATE AMRIK; Protocol Tranexamic Acid 1,000 mg/ (Sodium Chloride) 110 mls @ 660 mls/hr IV ONETIME PRN PRN Reason: Bleeding Ibuprofen (Motrin) 400 mg PO Q4H PRN PRN Reason: Pain Ibuprofen (Motrin) 800 mg PO Q6H PRN PRN Reason: Pain Last Admin: 06/30/19 04:20 Dose: 800 mg Methylergonovine Maleate (Methergine) 0.2 mg IM ASDIRECTED PRN PRN Reason: Post Hemorrhage Nalbuphine HCl (Nubain) 10 mg IVPUSH Q1H PRN PRN Reason: Pain (severe 7-10) Ondansetron HCl (Zofran) 4 mg IVPUSH Q6H PRN PRN Reason: Nausea/Vomiting Oxycodone HCl (Oxycodone) 5 mg PO Q2H PRN PRN Reason: Pain Last Admin: 06/29/19 23:02 Dose: 5 mg Sodium Chloride (Saline Flush) 10 ml FLUSH ASDIRECTED PRN PRN Reason: Keep Vein Open Sodium Chloride (Saline Flush) 2.5 ml FLUSH ASDIRECTED PRN PRN Reason: Keep Vein Open Sodium Chloride (Normal Saline) 10 ml IV ASDIRECTED PRN PRN Reason: IV Use Sterile Water (Sterile Water For Irrigation) 1,000 ml IRR ASDIRECTED PRN PRN Reason: delivery Witch Kathleen (Tucks) 1 pad TOP ASDIRECTED PRN PRN Reason: comfort care Last Admin: 06/29/19 00:28 Dose: 1 container Discontinued Medications Butorphanol Tartrate (Stadol) 1 mg IVPUSH Q1H PRN PRN Reason: Pain Fentanyl (Sublimaze) Confirm Administered Dose 100 mcg .ROUTE .STK-MED ONE Stop: 06/28/19 16:38 Last Admin: 06/29/19 07:22 Dose: Not Given Fentanyl (Sublimaze) Confirm Administered Dose 100 mcg .ROUTE .STK-MED ONE Stop: 06/28/19 19:23 Last Admin: 06/29/19 07:22 Dose: Not Given Ampicillin Sodium 2 gm/ Sodium (Chloride) 100 mls @ 200 mls/hr IV ONETIME ONE Stop: 06/28/19 12:29 Last Admin: 06/28/19 12:40 Dose: 200 mls/hr Ampicillin Sodium 1 gm/ Sodium (Chloride) 50 mls @ 100 mls/hr IV Q4H AMRIK Last Admin: 06/28/19 20:42 Dose: 100 mls/hr Ropivacaine (Naropin 0.2%) Confirm Administered Dose 100 mls @ as directed .ROUTE .STK-MED ONE Stop: 06/28/19 16:38 Last Admin: 06/29/19 07:22 Dose: Not Given Lidocaine HCl (Xylocaine 1%) 50 ml INJECT ONETIME PRN PRN Reason: Laceration repair Lidocaine/Epinephrine (Xylocaine 2% With Epinephrine 1:100,000) 20 ml .XX .STK- MED ONE Stop: 06/29/19 15:02 Misoprostol (Cytotec) 200 mcg PO ONETIME PRN PRN Reason: Post Hemorrhage Terbutaline Sulfate (Brethine) 0.25 mg SUBCUT ASDIRECTED PRN PRN Reason: Tacysystole - Interaction Disposition, : [place] at Bedside Interaction: Holding Feeding: Breastfed ; Nursed Well Support Person: - Recovery Exam Fundal Tone: Firm Fundal Level: At Umbilicus Fundal Placement: Midline Lochia Amount: Small Lochia Color: Rubra/Red Episiotomy/Laceration: Approximated Bladder Status: Voiding Urinary Elimination: Voided - Exam General: Alert, Oriented, Cooperative, No Acute Distress HEENT: Pupils Equal, Pupils Reactive Neck: Supple, Trachea Midline Lungs: Normal Respiratory Effort GI/Abdominal Exam: Normal Bowel Sounds, Soft, Non-Tender, No Distention Extremities: Normal Inspection, Normal Range of Motion, Non-Tender, No Pedal Edema Skin: Warm, Dry, Intact Wound/Incisions: Healing Well Neurological: No New Focal Deficit Psy/Mental Status: Alert - Problem List Review Problem List Initiated/Reviewed/Updated: Yes - My Orders Last 24 Hours: My Active Orders 06/30/19 11:17 Ready for Discharge [RC] PER UNIT ROUTINE - Assessment Assessment:: 38yo PPD2 status post , stable and recovering well. - Plan Plan:: Vital stable. Hgb 10.4, bleeding minimal. Denies s/s of anemia, will start daily iron supplement. well, continue PNV. Motrin for pain, well controlled. Discharge home today.
[2019-06-30 14:34] VITALS: BP 119/76
== END 2019-06-30 14:05 | disposition home or self-care (01) | DRG 560 ==
LOC: MW.OB 11:04 → OBSVTOIN 23:23 → MW.OB 06-29 02:00
PROVIDERS: ADMIT Obstetrics & Gynecology; ATTEND Obstetrics & Gynecology
PROC: 10E0XZZ Delivery of Products of Conception, External Approach (ICD-10-PCS; principal; 2019-06-28)
PROC: 10907ZC Drainage of Amniotic Fluid, Therapeutic from Products of Conception, Via Natural or Artificial Opening (ICD-10-PCS; 2019-06-28)
PROC: 0HQ9XZZ Repair Perineum Skin, External Approach (ICD-10-PCS; 2019-06-28)
PROC: 3E0R3BZ Introduction of Anesthetic Agent into Spinal Canal, Percutaneous Approach (ICD-10-PCS; 2019-06-28)
PROC: 00HU33Z Insertion of Infusion Device into Spinal Canal, Percutaneous Approach (ICD-10-PCS; 2019-06-28)
DX: O70.0 First degree perineal laceration during delivery (principal); Z3A.39 39 weeks gestation of pregnancy; Z37.0 Single live birth
CPT/HCPCS: 36415; 51702; 59025; 59409; 82803; 85014; 85018; 85027; 85460; 86593; 86850; 86900; 86901; A9270-GY; J0290; J2590; J2792; J2795; J3010; J7050; J7120